=== PATIENT | female | born 1970 | race Hispanic/Latino ===

== ENCOUNTER 2017-02-01 19:24 | Emergency (ER) | payer OTHER ==
[2017-02-01 19:48] VITALS: BP 143/98; PULSE 103; RESP 16; TEMP 98.7; O2SAT 100
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
[2017-02-01] MEDS ORDERED: Oxycodone/Acetaminophen 5/325 mg Tab PO STA (23:03)
[2017-02-01] MEDS ORDERED: Oxycodone/Acetaminophen 5/325 mg Tab ONE (23:08)
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
--- NOTE | 2017-02-02 10:33 | CARD ---
APPROVED REPORT EKG Measurement Heart [id number] <Conclusion> Normal sinus rhythm Normal ECG
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
--- NOTE | 2017-02-02 11:42 | RAD ---
PROCEDURE: Radiographs of the chest and bilateral ribs HISTORY: Diffuse chest pain. Scroll COMPARISON: 01/30/2012 TECHNIQUE: Frontal radiograph of the chest and multiple oblique radiographs of the bilateral ribs were obtained. FINDINGS: RIGHT RIBS: No fracture or focal lesion visualized. LEFT RIBS: No fracture or focal lesion visualized. LUNGS: Clear. PLEURA: No pneumothorax or pleural fluid. CARDIOVASCULAR: Normal sized heart. No pulmonary vascular congestion. OTHER FINDINGS: None. IMPRESSION: Unremarkable radiographs of the chest and bilateral ribs. No rib fracture. Concordant results with the preliminary interpretation rendered by the emergency department physician procedure.
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
== END 2017-02-01 23:16 | disposition home or self-care (01) ==
LOC: H.ER 19:24
DX: S16.1XXA Strain of muscle, fascia and tendon at neck level, initial encounter (principal); S43.402A Unspecified sprain of left shoulder joint, initial encounter; S20.219A Contusion of unspecified front wall of thorax, initial encounter; M25.532 Pain in left wrist; V43.52XA Car driver injured in collision with other type car in traffic accident, initial encounter; Y92.410 Unspecified street and highway as the place of occurrence of the external cause; F41.9 Anxiety disorder, unspecified
CPT/HCPCS: 29125; 70450; 71111; 72040; 73030; 73110; 73130; 81025; 90471; 90715; 93005; 96372; 99282; J1885; J2405